=== PATIENT | female | born 1985 | race Caucasian/White ===

== ENCOUNTER 2019-12-28 18:12 | Emergency (ER) | payer BC ==
[~2019-12-28] VITALS: Ht 170.2 cm; Wt 204.0 kg
[~2019-12-28 18:12] MED LIST: ALPR-304 PO; CITA10SO6 PO; DIAZ5TAB PO; HYDR-4353 PO; METF-900 PO; OMEP-84 PO; ONDA4TAB6 PO; PROP10TA10 PO; RES15C PO; SUMA25TA35 PO
[2019-12-28 18:45] VITALS: BP 150/94
== END 2019-12-28 18:51 | disposition home or self-care (01) ==
LOC: ER 18:13
DX: R50.9 Fever, unspecified (principal); R51.9 Headache, unspecified; G43.909 Migraine, unspecified, not intractable, without status migrainosus; E11.9 Type 2 diabetes mellitus without complications; F41.9 Anxiety disorder, unspecified; M19.90 Unspecified osteoarthritis, unspecified site; Z20.828 Contact with and (suspected) exposure to other viral communicable diseases
CPT/HCPCS: 36415; 99282

== ENCOUNTER 2021-05-15 11:46 | Inpatient (IN) | payer BC ==
[~2021-05-15] VITALS: Ht 170.2 cm; Wt 203.0 kg
[2021-05-15 12:43] LABS: CLARITY,URINE SLIGHTLY CLOUDY (Clear); GLUCOSE, URINE >=1000 mg/dl (Neg); KETONES,URINE 40 mg/dl (Neg); LEUKOCYTE ESTERASE ,URINE TRACE (Neg); NITRITES, URINE NEGATIVE (Neg); OCCULT BLOOD,URINE LARGE (Neg); PROTEIN,URINE NEGATIVE (Neg); UROBILINOGEN,URINE 0.2 E.U/dL (0.2-1.0)
[2021-05-15 12:45] LABS: COLOR,URINE STRAW (Yellow); UA COLLECTION TYPE CLN CATCH MIDSTREAM
[2021-05-15 12:48] LABS: BASOPHILS # (AUTO) 0.1 X10'3 (0-0.2); BASOPHILS % (AUTO) 0.5 % (0-1); EOSINOPHILS # (AUTO) 0.4 X10'3 (0-0.9); EOSINOPHILS % (AUTO) 2.3 % (0-6); HEMATOCRIT 43.4 % (35.0-45.0); HEMOGLOBIN 14.3 g/dl (12.0-16.0); LYMPHOCYTES # (AUTO) 2.3 X10'3 (1.1-4.8); LYMPHOCYTES % (AUTO) 15.2 % (21-51); MEAN CORPUSCULAR HEMOGLOBIN 26.3 PG (27.0-31.0); MEAN CORPUSCULAR HGB CONC 32.9 g/dL (33.0-36.5); MEAN CORPUSCULAR VOLUME 79.8 FL (78-98); MEAN PLATELET VOLUME 8.3 FL (7.4-10.4); MONOCYTES # (AUTO) 1.3 X10'3 (0-0.9); MONOCYTES % (AUTO) 8.8 % (2-12); NEUTROPHILS % (AUTO) 73.2 % (42-75); PLATELET COUNT 345 X10'3 (140-440); RED BLOOD COUNT 5.44 X10'6 (4.20-5.60); RED CELL DISTRIBUTION WIDTH 15.1 % (11.5-14.5)
[2021-05-15] MEDS ORDERED: BUPIVAcaine/PF 7.5mg/ml (0.75%) 10ml vial IJ STA (12:51)
[2021-05-15] MEDS ORDERED: LIDOcaine 1% W/epiNEPHrine 1:200,000 10ml vial IJ ONE (12:55)
[2021-05-15 13:00] LABS: BACTERIA,URINE FEW /HPF (Neg); MUCUS STRANDS FEW /LPF (Neg); SQUAMOUS EPITHELIAL CELL,UR MANY /LPF (FEW); WBC,URINE 0-4 /HPF (0-4); YEAST FEW /HPF (NEGATIVE)
[2021-05-15] MEDS ORDERED: iohexol 300mg/ml 100ml inj. ONE (13:04)
[2021-05-15 13:05] LABS: ALANINE AMINOTRANSFERASE 34 U/L (12-78); ALBUMIN 3.6 G/DL (3.4-5.0); ALBUMIN/GLOBULIN RATIO 0.8 (1.1-1.5); ALKALINE PHOSPHATASE 95 IU/L (46-116); ANION GAP 15 (8-16); ASPARTATE AMINO TRANSFERASE 20 U/L (10-37); BILIRUBIN,TOTAL 0.9 MG/DL (0.1-1.0); BLOOD UREA NITROGEN 14 MG/DL (7-18); BUN/CREATININE RATIO 15.6 (6.6-38.0); CALCIUM 8.9 MG/DL (8.5-10.1); CHLORIDE 102 MMOL/L (99-107); GLUCOSE 356 MG/DL (70-104); MAGNESIUM 2.4 MG/DL (1.5-2.4); POTASSIUM 3.9 MMOL/L (3.5-5.1); SODIUM 135 MMOL/L (135-145); TOTAL CARBON DIOXIDE 18.1 MMOL/L (24-32); TOTAL PROTEIN 7.9 G/DL (6.4-8.2); eGFR 70 ML/MIN
[2021-05-15] MEDS ORDERED: morphine 10mg/ml inj. IV ONE (13:10)
[2021-05-15] MEDS ORDERED: morphine 4 MG/ML inj SYRINge IV ONE ×3 (13:10→15:00)
[2021-05-15] MEDS ORDERED: ampicillin/sulbac 3gm/NS 100ml 100 ML IV SCH (13:10)
[2021-05-15] MEDS ORDERED: normal saline 1000ml 1,000 ML IV ONE (13:15)
[2021-05-15] MEDS ORDERED: insulin regular, human 10 units/0.1 ml syringe SQ ONE (13:35)
[2021-05-15] MEDS ORDERED: fluconazole 150mg tablet PO ONE (16:45)
[2021-05-15] MEDS ORDERED: magnesium 2GM in 50ml NS 50 ML IV PRN (17:05)
[2021-05-15] MEDS ORDERED: HYDROcodone/acetaminophen 5mg/325mg tablet PO PRN (17:05)
[2021-05-15] MEDS ORDERED: magnesium hydroxide 30ml (MOM) UD suspension PO PRN (17:05)
[2021-05-15] MEDS ORDERED: dextrose 50%-water 50ml dispensing syringe IV PRN ×2 (17:05)
[2021-05-15] MEDS ORDERED: acetaminophen 325mg tablet PO PRN ×2 (17:05)
[2021-05-15] MEDS ORDERED: naloxone 0.4 mg/ml inj IV PRN (17:05)
[2021-05-15] MEDS ORDERED: DEXTROSE 15 GM of carb/4 tabs (each vial/BOTTLE has 4 tablets) PO PRN ×2 (17:05)
[2021-05-15] MEDS ORDERED: magnesium 4gm in 100ml NS 100 ML IV PRN (17:05)
[2021-05-15] MEDS ORDERED: glucagon, human recombinant 1mg kit SUBCUT PRN (17:05)
[2021-05-15] MEDS ORDERED: bisacodyl 10mg suppository rectal RC PRN (17:05)
[2021-05-15] MEDS ORDERED: acetaminophen 650mg rectal suppository RC PRN (17:05)
[2021-05-15] MEDS ORDERED: potassium CL 10mEq/100ml bag 100 ML IV PRN (17:05)
[2021-05-15] MEDS ORDERED: MESSAGE TO PHARMACY PO ONE (17:05)
[2021-05-15] MEDS ORDERED: potassium Cl 20 mEq SR tablet PO PRN ×2 (17:05)
[2021-05-15] MEDS ORDERED: magnesium Cl slow-release 64mg tablet PO PRN (17:05)
[2021-05-15] MEDS ORDERED: morphine 2 MG/ML inj. syringe IV PRN (17:05)
[2021-05-15] MEDS ORDERED: ondansetron/PF 4mg/2ml inj IV PRN (17:05)
[2021-05-15] MEDS ORDERED: mag hydrox/Alum hydrox/simeth 30ml oral suspension PO PRN (17:05)
[2021-05-15] MEDS ORDERED: EMPA10TA PO (17:11)
[2021-05-15] MEDS ORDERED: MULT-1085 PO (17:11)
[2021-05-15] MEDS ORDERED: SPIR25TA5 PO (17:11)
[2021-05-15] MEDS ORDERED: LEVO25TA82 PO (17:11)
[2021-05-15] MEDS ORDERED: DULO-31 PO (17:11)
[2021-05-15] MEDS ORDERED: FERR-119 PO (17:11)
[2021-05-15] MEDS ORDERED: GLIP10TA21 PO (17:11)
--- NOTE | 2021-05-15 17:39 | NUR ---
Report received from PETE Fernandez in ER
--- NOTE | 2021-05-15 18:07 | NUR ---
Problems reprioritized. Patient report given, questions answered & plan of care reviewed with PETE Soria.
[2021-05-15 18:11] LABS: HEMOGLOBIN A1C 11.8 % (4.5-6.2)
[2021-05-15 18:15] VITALS: BP 153/83
[2021-05-15] MEDS ORDERED: GLIP10TA11 PO (18:45)
--- NOTE | 2021-05-15 18:45 | NUR ---
Patient in room ED 11. I have received report from Corie FREEMAN and had the opportunity to ask questions and assume patient care. Addendum: 05/15/21 at 1845 by Estella Parker RN [facility] Addendum: 05/15/21 at 1846 by Estella Parker RN In room 349B
[2021-05-15] MEDS: insulin Lispro (HumaLOG) vial - multi-dose SQ SCH (19:23)
[2021-05-15] MEDS: piperacillin/tazo 3.375gm/50ml 50 ML IV SCH (19:26)
[2021-05-15] MEDS: normal saline 1000ml 1,000 ML IV SCH (19:26)
[2021-05-15] MEDS: K and/or MAG REPLACEMENT MC SCH (20:00)
[2021-05-15] MEDS: morphine 2 MG/ML inj. syringe IV PRN (20:33)
[2021-05-15] MEDS: docusate sod 100mg capsule PO SCH (20:44)
[2021-05-15] MEDS: heparin, porcine 5000 units/ml vial SQ SCH (20:44)
[2021-05-15] MEDS: insulin glargine (Lantus) pen - multi-dose SQ SCH (21:30)
[2021-05-15] MEDS: HYDROcodone/acetaminophen 10/325mg tab PO PRN (22:39)
[2021-05-16] VITALS: BP 137/79
--- NOTE | 2021-05-16 00:19 | NUR ---
I talked to the pharmacist about the dosing of Vancomycin and Zosyn on the patient's EMAR. We are to hold the midnight dose of Zosyn because her last dose is still finishing up due to no iv access and medicine being interrupted. Also the 1900 dose of Vancomycin was not given due to Zosyn running so we are to give that dose now and hold the 0300 dose of Vancomycin. Pharmacy will retime the Vancomycin in the am.
[2021-05-16] MEDS: vancomycin/NS 1 GM ADD-VANTAGE 250 ML IV SCH ×5 (00:24→23:38)
[2021-05-16] MEDS: morphine 2 MG/ML inj. syringe IV PRN ×5 (00:25→23:41)
[2021-05-16] MEDS: diphenhydrAMINE 25mg capsule PO PRN ×3 (02:26→21:18)
[2021-05-16] MEDS: normal saline 1000ml 1,000 ML IV SCH ×3 (03:05→19:53)
[2021-05-16] MEDS: HYDROcodone/acetaminophen 10/325mg tab PO PRN ×4 (05:36→21:20)
--- NOTE | 2021-05-16 06:24 | NUR ---
Problems reprioritized. Patient report given, questions answered & plan of care reviewed with Brittany FREEMAN.
[2021-05-16 07:03] LABS: BASOPHILS # (AUTO) 0.1 X10'3 (0-0.2); BASOPHILS % (AUTO) 0.5 % (0-1); EOSINOPHILS # (AUTO) 0.3 X10'3 (0-0.9); EOSINOPHILS % (AUTO) 2.1 % (0-6); HEMATOCRIT 40.9 % (35.0-45.0); HEMOGLOBIN 13.8 g/dl (12.0-16.0); LYMPHOCYTES # (AUTO) 2.4 X10'3 (1.1-4.8); LYMPHOCYTES % (AUTO) 15.1 % (21-51); MEAN CORPUSCULAR HEMOGLOBIN 27.3 PG (27.0-31.0); MEAN CORPUSCULAR HGB CONC 33.8 g/dL (33.0-36.5); MEAN CORPUSCULAR VOLUME 80.7 FL (78-98); MONOCYTES # (AUTO) 1.5 X10'3 (0-0.9); MONOCYTES % (AUTO) 9.4 % (2-12); NEUTROPHILS # (AUTO) 11.7 X10'3 (1.8-7.7); NEUTROPHILS % (AUTO) 72.9 % (42-75); PLATELET COUNT 341 X10'3 (140-440); RED BLOOD COUNT 5.07 X10'6 (4.20-5.60); RED CELL DISTRIBUTION WIDTH 15.2 % (11.5-14.5)
[2021-05-16 07:19] LABS: ALANINE AMINOTRANSFERASE 31 U/L (12-78); ALBUMIN 3.4 G/DL (3.4-5.0); ALBUMIN/GLOBULIN RATIO 0.8 (1.1-1.5); ALKALINE PHOSPHATASE 85 IU/L (46-116); ANION GAP 14 (8-16); ASPARTATE AMINO TRANSFERASE 17 U/L (10-37); BILIRUBIN,TOTAL 1.5 MG/DL (0.1-1.0); BLOOD UREA NITROGEN 8 MG/DL (7-18); BUN/CREATININE RATIO 11.1 (6.6-38.0); CALCIUM 8.2 MG/DL (8.5-10.1); CHLORIDE 102 MMOL/L (99-107); CHOLESTEROL 115 MG/DL (0-200); CREATININE 0.72 MG/DL (0.40-0.90); GLUCOSE 236 MG/DL (70-104); HDL CHOLESTEROL 29 MG/DL (35-60); LDL CHOLESTEROL 72 MG/DL (50-100); MAGNESIUM 2.1 MG/DL (1.5-2.4); PHOSPHORUS 3.4 MG/DL (2.3-4.5); POTASSIUM 3.8 MMOL/L (3.5-5.1); SODIUM 134 MMOL/L (135-145); TOTAL CARBON DIOXIDE 18.1 MMOL/L (24-32); TOTAL PROTEIN 7.7 G/DL (6.4-8.2); TRIGLYCERIDES 179 MG/DL (20-135); eGFR > 90 ML/MIN
[2021-05-16] MEDS: docusate sod 100mg capsule PO SCH ×2 (07:34→18:59)
[2021-05-16] MEDS: heparin, porcine 5000 units/ml vial SQ SCH ×2 (07:35→19:00)
[2021-05-16] MEDS: K and/or MAG REPLACEMENT MC SCH ×2 (07:47→19:05)
[2021-05-16 08:04] VITALS: BP 131/76
[2021-05-16] MEDS: insulin Lispro (HumaLOG) vial - multi-dose SQ SCH ×3 (08:26→18:58)
[2021-05-16] MEDS: piperacillin/tazo 3.375gm/50ml 50 ML IV SCH ×3 (09:47→17:03)
--- NOTE | 2021-05-16 11:28 | NUR ---
Diabetes consult: Noted pt w/ hx of DM, A1c 11.8. Pt declined verbal ed at this time but accepted written DM ed w/ RD contact info Addendum: 05/16/21 at [address] Amended: Links added.
[2021-05-16 12:08] VITALS: BP 135/76
[2021-05-16] MEDS ORDERED: fluconazole 150mg tablet PO ONE (14:30)
[2021-05-16] MEDS: nystatin 15 GM powder TP SCH ×2 (14:54→21:20)
--- NOTE | 2021-05-16 15:47 | NUR ---
REPORT TO WINDY FREEMAN.
--- NOTE | 2021-05-16 15:47 | NUR ---
Patient in room [facility] 349B. I have received report from PETE PIERCE and had the opportunity to ask questions and assume patient care.
--- NOTE | 2021-05-16 18:29 | NUR ---
Problems reprioritized. Patient report given, questions answered & plan of care reviewed with PETE WU.
[2021-05-16 20:00] VITALS: BP 139/72
[2021-05-16] MEDS: insulin glargine (Lantus) pen - multi-dose SQ SCH (21:13)
[2021-05-16] MEDS ORDERED: VANCOMYCIN LEVEL IV ONE (23:30)
[2021-05-17] VITALS: BP 119/66
[2021-05-17] MEDS: piperacillin/tazo 3.375gm/50ml 50 ML IV SCH ×4 (01:13→23:21)
[2021-05-17] MEDS: HYDROcodone/acetaminophen 10/325mg tab PO PRN ×4 (02:43→21:50)
[2021-05-17] MEDS: morphine 2 MG/ML inj. syringe IV PRN ×4 (04:50→23:25)
[2021-05-17] MEDS: normal saline 1000ml 1,000 ML IV SCH ×2 (04:52→19:00)
--- NOTE | 2021-05-17 06:16 | NUR ---
Problems reprioritized. Patient report given, questions answered & plan of care reviewed with Meenu FREEMAN.
[2021-05-17 06:41] LABS: BASOPHILS # (AUTO) 0.1 X10'3 (0-0.2); BASOPHILS % (AUTO) 0.5 % (0-1); EOSINOPHILS # (AUTO) 0.3 X10'3 (0-0.9); EOSINOPHILS % (AUTO) 2.5 % (0-6); HEMATOCRIT 37.6 % (35.0-45.0); HEMOGLOBIN 12.3 g/dl (12.0-16.0); LYMPHOCYTES # (AUTO) 1.5 X10'3 (1.1-4.8); MEAN CORPUSCULAR HEMOGLOBIN 26.3 PG (27.0-31.0); MEAN CORPUSCULAR HGB CONC 32.8 g/dL (33.0-36.5); MEAN CORPUSCULAR VOLUME 80.3 FL (78-98); MEAN PLATELET VOLUME 8.2 FL (7.4-10.4); MONOCYTES # (AUTO) 1.3 X10'3 (0-0.9); MONOCYTES % (AUTO) 11.6 % (2-12); NEUTROPHILS # (AUTO) 7.9 X10'3 (1.8-7.7); NEUTROPHILS % (AUTO) 71.4 % (42-75); PLATELET COUNT 267 X10'3 (140-440); RED BLOOD COUNT 4.68 X10'6 (4.20-5.60); RED CELL DISTRIBUTION WIDTH 15.3 % (11.5-14.5); WHITE BLOOD COUNT 11.1 X10'3 (4.5-11.0)
--- NOTE | 2021-05-17 06:47 | NUR ---
Patient in room [facility] 349B. I have received report from PETE WU and had the opportunity to ask questions and assume patient care.
[2021-05-17 07:20] LABS: ALANINE AMINOTRANSFERASE 27 U/L (12-78); ALBUMIN 2.8 G/DL (3.4-5.0); ALBUMIN/GLOBULIN RATIO 0.7 (1.1-1.5); ALKALINE PHOSPHATASE 78 IU/L (46-116); ANION GAP 11 (8-16); ASPARTATE AMINO TRANSFERASE 20 U/L (10-37); BILIRUBIN,TOTAL 1.2 MG/DL (0.1-1.0); BLOOD UREA NITROGEN 7 MG/DL (7-18); BUN/CREATININE RATIO 9.3 (6.6-38.0); CALCIUM 8.1 MG/DL (8.5-10.1); CHLORIDE 104 MMOL/L (99-107); CREATININE 0.75 MG/DL (0.40-0.90); GLUCOSE 247 MG/DL (70-104); MAGNESIUM 1.9 MG/DL (1.5-2.4); PHOSPHORUS 3.5 MG/DL (2.3-4.5); POTASSIUM 3.7 MMOL/L (3.5-5.1); SODIUM 134 MMOL/L (135-145); TOTAL CARBON DIOXIDE 19.2 MMOL/L (24-32); TOTAL PROTEIN 6.7 G/DL (6.4-8.2); VANCOMYCIN,RANDOM 9.4 UG/ML; eGFR 87 ML/MIN
[2021-05-17 07:28] VITALS: BP 132/76
[2021-05-17] MEDS: K and/or MAG REPLACEMENT MC SCH ×2 (08:00→19:00)
[2021-05-17] MEDS: ferrous sulfate 325mg tablet PO SCH (08:01)
[2021-05-17] MEDS: spironolactone 25 MG tablet PO SCH ×2 (08:03→18:57)
[2021-05-17] MEDS: duloxetine 30mg CAPSULE.DR PO SCH (08:03)
[2021-05-17] MEDS: diphenhydrAMINE 25mg capsule PO PRN ×2 (08:04→19:00)
[2021-05-17] MEDS: docusate sod 100mg capsule PO SCH ×2 (08:04→18:56)
[2021-05-17] MEDS: levoTHYROXINE 25mcg tablet PO SCH (08:04)
[2021-05-17] MEDS: multivitamins, therapeutics tablet PO SCH (08:04)
[2021-05-17] MEDS: heparin, porcine 5000 units/ml vial SQ SCH ×2 (08:05→18:56)
[2021-05-17] MEDS: nystatin 15 GM powder TP SCH ×2 (08:08→13:00)
[2021-05-17] MEDS: insulin Lispro (HumaLOG) vial - multi-dose SQ SCH ×3 (08:13→18:51)
[2021-05-17] MEDS: VANCOmycin 1250MG/NS 250ml Bag 250 ML IV SCH ×3 (09:18→23:15)
[2021-05-17] MEDS ORDERED: iohexol 300mg/ml 100ml inj. ONE (10:24)
[2021-05-17 12:36] VITALS: BP 126/81
--- NOTE | 2021-05-17 13:43 | NUR ---
PRESSURE ULCER EDUCATION: DEFINITION: A pressure ulcer is an area of skin that breaks down when you stay in one position too long. The constant pressure against the skin reduces the blood flow to that area and the affected tissue dies. CAUSES: "Being bedridden or in a wheelchair "Fragile skin "Having a chronic condition, such as diabetes or vascular disease "Inability to move certain parts of your body without assistance "Older age "Incontinence of urine or stool SYMPTOMS: "A reddened area that DOES NOT turn white when pressed on - this can be the beginning of a pressure ulcer "A blister, deep sore or a crater - these can be advanced pressure ulcers FIRST AID: "Relieve the pressure on this area "Keep the area clean and dry "Call your primary doctor if you see any of the above symptoms "DO NOT massage the area "DO NOT use a donut shaped or ring shaped pillow- these actually interfere with the blood flow and cause complications PREVENTION: "Check for pressure ulcers everyday "Change position at least every two hours to relieve pressure "Use items that help relieve pressure- pillows, sheepskin, foam padding, and powders. "Keep skin clean and dry "Eat healthy well balanced meals "Exercise daily IF YOU SEE ANY OF THESE SYMPTOMS WHILE IN THE HOSPITAL - TELL YOUR NURSE IMMEDIATELY. IF YOU SEE ANY OF THESE SYMPTOMS WHILE AT HOME OR HAVE ANY QUESTIONS OR CONCERNS ABOUT PRESSURE ULCERS - CALL YOUR PRIMARY DOCTOR IMMEDIATELY. Addendum: 05/17/21 at 1344 by Jessica Douglas RN Amended: Links added.
[2021-05-17 17:05] LABS: CLARITY,URINE CLEAR (Clear); COLOR,URINE YELLOW (Yellow); GLUCOSE, URINE >=1000 mg/dl (Neg); KETONES,URINE 40 mg/dl (Neg); LEUKOCYTE ESTERASE ,URINE NEGATIVE (Neg); NITRITES, URINE NEGATIVE (Neg); OCCULT BLOOD,URINE TRACE-INTACT (Neg); PROTEIN,URINE NEGATIVE (Neg); URINE HCG NEGATIVE (NEG); UROBILINOGEN,URINE 0.2 E.U/dL (0.2-1.0)
[2021-05-17 17:21] LABS: UA COLLECTION TYPE STRAIGHT CATH
[2021-05-17 17:23] LABS: WBC,URINE NONE SEEN /HPF (0-4)
[2021-05-17 17:24] LABS: BACTERIA,URINE NONE SEEN /HPF (Neg); RBC,URINE NONE SEEN /HPF (0-2); SQUAMOUS EPITHELIAL CELL,UR FEW /LPF (FEW)
--- NOTE | 2021-05-17 18:27 | NUR ---
OK TO USE PERSONAL CPAP AT NIGHT AND WITH NAPS PER
--- NOTE | 2021-05-17 18:27 | NUR ---
Problems reprioritized. Patient report given, questions answered & plan of care reviewed with PETE WU
--- NOTE | 2021-05-17 19:06 | NUR ---
Patient in room [facility] 349. I have received report from Meenu FREEMAN and had the opportunity to ask questions and assume patient care.
[2021-05-17 19:20] VITALS: BP 140/80
[2021-05-17] MEDS: insulin glargine (Lantus) pen - multi-dose SQ SCH (21:55)
[2021-05-17 23:30] VITALS: BP 121/60
[2021-05-18] MEDS: HYDROcodone/acetaminophen 10/325mg tab PO PRN ×5 (02:05→21:28)
[2021-05-18] MEDS: morphine 2 MG/ML inj. syringe IV PRN ×4 (04:58→19:24)
[2021-05-18] MEDS: normal saline 1000ml 1,000 ML IV SCH ×2 (04:58→15:43)
--- NOTE | 2021-05-18 06:35 | NUR ---
Problems reprioritized. Patient report given, questions answered & plan of care reviewed with Hope FREEMAN.
--- NOTE | 2021-05-18 06:37 | NUR ---
Patient in room [facility] 349. I have received report from Loyda FREEMAN and had the opportunity to ask questions and assume patient care.
[2021-05-18 07:00] VITALS: BP 125/72
[2021-05-18] MEDS ORDERED: VANCOMYCIN LEVEL IV ONE (07:30)
[2021-05-18] MEDS: K and/or MAG REPLACEMENT MC SCH ×2 (08:00→20:00)
[2021-05-18 08:06] LABS: BASOPHILS # (AUTO) 0.1 X10'3 (0-0.2); BASOPHILS % (AUTO) 0.5 % (0-1); EOSINOPHILS # (AUTO) 0.3 X10'3 (0-0.9); EOSINOPHILS % (AUTO) 3.1 % (0-6); HEMATOCRIT 36.2 % (35.0-45.0); HEMOGLOBIN 12.1 g/dl (12.0-16.0); LYMPHOCYTES # (AUTO) 1.8 X10'3 (1.1-4.8); LYMPHOCYTES % (AUTO) 18.4 % (21-51); MEAN CORPUSCULAR HEMOGLOBIN 26.7 PG (27.0-31.0); MEAN CORPUSCULAR HGB CONC 33.5 g/dL (33.0-36.5); MEAN CORPUSCULAR VOLUME 79.7 FL (78-98); MEAN PLATELET VOLUME 7.7 FL (7.4-10.4); MONOCYTES # (AUTO) 1.2 X10'3 (0-0.9); MONOCYTES % (AUTO) 11.7 % (2-12); NEUTROPHILS # (AUTO) 6.5 X10'3 (1.8-7.7); NEUTROPHILS % (AUTO) 66.3 % (42-75); PLATELET COUNT 266 X10'3 (140-440); RED BLOOD COUNT 4.55 X10'6 (4.20-5.60); RED CELL DISTRIBUTION WIDTH 15.1 % (11.5-14.5); WHITE BLOOD COUNT 9.9 X10'3 (4.5-11.0)
[2021-05-18 08:28] LABS: ALANINE AMINOTRANSFERASE 38 U/L (12-78); ALBUMIN 2.6 G/DL (3.4-5.0); ALBUMIN/GLOBULIN RATIO 0.7 (1.1-1.5); ALKALINE PHOSPHATASE 89 IU/L (46-116); ANION GAP 9 (8-16); ASPARTATE AMINO TRANSFERASE 35 U/L (10-37); BILIRUBIN,TOTAL 0.9 MG/DL (0.1-1.0); BLOOD UREA NITROGEN 6 MG/DL (7-18); CALCIUM 8.3 MG/DL (8.5-10.1); CHLORIDE 106 MMOL/L (99-107); CREATININE 0.67 MG/DL (0.40-0.90); GLUCOSE 232 MG/DL (70-104); MAGNESIUM 1.8 MG/DL (1.5-2.4); PHOSPHORUS 3.5 MG/DL (2.3-4.5); SODIUM 138 MMOL/L (135-145); TOTAL CARBON DIOXIDE 22.6 MMOL/L (24-32); TOTAL PROTEIN 6.6 G/DL (6.4-8.2); VANCOMYCIN,TROUGH 9.9 UG/ML (6.0-14.0); eGFR > 90 ML/MIN
[2021-05-18] MEDS: diphenhydrAMINE 25mg capsule PO PRN ×2 (08:37→15:44)
[2021-05-18] MEDS: VANCOmycin 1250MG/NS 250ml Bag 250 ML IV SCH (08:38)
[2021-05-18] MEDS: piperacillin/tazo 3.375gm/50ml 50 ML IV SCH ×2 (08:38→16:06)
[2021-05-18] MEDS: ferrous sulfate 325mg tablet PO SCH (08:38)
[2021-05-18] MEDS: levoTHYROXINE 25mcg tablet PO SCH (08:38)
[2021-05-18] MEDS: duloxetine 30mg CAPSULE.DR PO SCH (08:38)
[2021-05-18] MEDS: multivitamins, therapeutics tablet PO SCH (08:39)
[2021-05-18] MEDS: spironolactone 25 MG tablet PO SCH ×2 (08:39→19:24)
[2021-05-18] MEDS: docusate sod 100mg capsule PO SCH ×2 (08:40→19:24)
[2021-05-18] MEDS: heparin, porcine 5000 units/ml vial SQ SCH ×2 (08:41→19:25)
[2021-05-18] MEDS: insulin Lispro (HumaLOG) vial - multi-dose SQ SCH ×4 (08:47→21:26)
--- NOTE | 2021-05-18 10:06 | NUR ---
F/u: Per wound care note skin is intact. Noted pt with 100% PO intake on CHO controlled diet, d/w dietary to send double protein with meals for satiety. Will continue to follow. Addendum: 05/18/21 at [address] Amended: Links added.
[2021-05-18 12:00] VITALS: BP 133/74
--- NOTE | 2021-05-18 14:06 | NUR ---
Paged Dr. Stone Message: [facility] RN ext [phone] RE: Shakeel Kearns. Patient asking if she can have her Morphine IV given more often? She is getting Morphine 4mg IV Q4hrs PRN
--- NOTE | 2021-05-18 17:34 | NUR ---
Patient requested to postpone the milk of magnesia for constipation at this time. She states "I'll wait for tonight!"
[2021-05-18 19:52] VITALS: BP 173/79
[2021-05-18] MEDS: linezolid 600mg tablet PO SCH (20:23)
[2021-05-18] MEDS: insulin glargine (Lantus) pen - multi-dose SQ SCH (21:24)
[2021-05-19] VITALS: BP 128/59
[2021-05-19] MEDS: piperacillin/tazo 3.375gm/50ml 50 ML IV SCH ×3 (00:06→16:09)
[2021-05-19] MEDS: morphine 2 MG/ML inj. syringe IV PRN ×5 (00:12→19:47)
[2021-05-19] MEDS: normal saline 1000ml 1,000 ML IV SCH ×3 (00:55→19:47)
[2021-05-19 06:06] LABS: BASOPHILS % (AUTO) 0.4 % (0-1); EOSINOPHILS # (AUTO) 0.3 X10'3 (0-0.9); EOSINOPHILS % (AUTO) 3.4 % (0-6); HEMATOCRIT 35.3 % (35.0-45.0); HEMOGLOBIN 11.6 g/dl (12.0-16.0); LYMPHOCYTES # (AUTO) 1.9 X10'3 (1.1-4.8); LYMPHOCYTES % (AUTO) 21.1 % (21-51); MEAN CORPUSCULAR HEMOGLOBIN 26.3 PG (27.0-31.0); MEAN CORPUSCULAR HGB CONC 32.8 g/dL (33.0-36.5); MEAN PLATELET VOLUME 7.7 FL (7.4-10.4); MONOCYTES % (AUTO) 11.5 % (2-12); NEUTROPHILS # (AUTO) 5.8 X10'3 (1.8-7.7); NEUTROPHILS % (AUTO) 63.6 % (42-75); PLATELET COUNT 274 X10'3 (140-440); RED BLOOD COUNT 4.41 X10'6 (4.20-5.60); RED CELL DISTRIBUTION WIDTH 15.3 % (11.5-14.5); WHITE BLOOD COUNT 9.1 X10'3 (4.5-11.0)
--- NOTE | 2021-05-19 06:36 | NUR ---
Problems reprioritized. Patient report given, questions answered & plan of care reviewed with Chema FREEMAN.
[2021-05-19 06:40] LABS: ALANINE AMINOTRANSFERASE 37 U/L (12-78); ALBUMIN 2.4 G/DL (3.4-5.0); ALBUMIN/GLOBULIN RATIO 0.6 (1.1-1.5); ALKALINE PHOSPHATASE 85 IU/L (46-116); ANION GAP 12 (8-16); ASPARTATE AMINO TRANSFERASE 25 U/L (10-37); BILIRUBIN,TOTAL 0.7 MG/DL (0.1-1.0); BLOOD UREA NITROGEN 7 MG/DL (7-18); BUN/CREATININE RATIO 11.3 (6.6-38.0); CALCIUM 7.8 MG/DL (8.5-10.1); CHLORIDE 102 MMOL/L (99-107); CREATININE 0.62 MG/DL (0.40-0.90); GLUCOSE 210 MG/DL (70-104); MAGNESIUM 1.5 MG/DL (1.5-2.4); POTASSIUM 3.6 MMOL/L (3.5-5.1); SODIUM 137 MMOL/L (135-145); TOTAL CARBON DIOXIDE 23.1 MMOL/L (24-32); TOTAL PROTEIN 6.4 G/DL (6.4-8.2); eGFR > 90 ML/MIN
--- NOTE | 2021-05-19 06:43 | NUR ---
Patient in room [facility] 349. I have received report from JAZMIN FREEMAN and had the opportunity to ask questions and assume patient care.
--- NOTE | 2021-05-19 06:43 | NUR ---
PT AWAKE IN BED, NO REPORTS OF NEEDS. CALL LIGHT IN REACH. REQUESTED I CLOSE DOOR WHEN I LEFT
[2021-05-19 07:30] VITALS: BP 108/67
[2021-05-19] MEDS: ferrous sulfate 325mg tablet PO SCH (07:34)
[2021-05-19] MEDS: levoTHYROXINE 25mcg tablet PO SCH (07:35)
[2021-05-19] MEDS: docusate sod 100mg capsule PO SCH ×2 (07:35→19:46)
[2021-05-19] MEDS: HYDROcodone/acetaminophen 10/325mg tab PO PRN ×3 (07:35→16:07)
[2021-05-19] MEDS: duloxetine 30mg CAPSULE.DR PO SCH (07:35)
[2021-05-19] MEDS: spironolactone 25 MG tablet PO SCH ×2 (07:35→19:53)
[2021-05-19] MEDS: multivitamins, therapeutics tablet PO SCH (07:35)
[2021-05-19] MEDS: linezolid 600mg tablet PO SCH ×2 (07:36→19:46)
[2021-05-19] MEDS: K and/or MAG REPLACEMENT MC SCH ×2 (07:38→19:47)
[2021-05-19] MEDS: heparin, porcine 5000 units/ml vial SQ SCH ×2 (07:38→19:46)
[2021-05-19] MEDS ORDERED: VANCOMYCIN LEVEL IV ONE (08:30)
[2021-05-19] MEDS: insulin Lispro (HumaLOG) vial - multi-dose SQ SCH ×4 (10:27→21:13)
--- NOTE | 2021-05-19 11:42 | NUR ---
Noted pt started on Zyvox. Pt seen at bedside provided with written and verbal low tyramine nutrition therapy education. All questions were answered at this time, RD contact information provided and pt encouraged to reach out if needed. Pt admit for cellulitis and phlegmon in the perianal region. Pt states appetite is "okay" though documented with mostly 100% PO intake on CHO controlled diet and is agreeable to continue double protein TID. Additional food preferences were obtained and d/w dietary, see below. 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 Pt denies difficulty chewing/swallowing or constipation/diarrhea. LBM 05/18 with routine and PRN bowel care available. Will continue to follow. Recommendations: 1) Continue CHO controlled diet 2) [place] food preferences: double eggs WB, double meat BIDLD, extra pepper TIDWM, light ranch only; no: fish, cinnamon, or green beans 3) Continue routine MVI 4) Routine bowel care 5) Weekly scaled weights Addendum: 05/19/21 at [address] Amended: Links added.
--- NOTE | 2021-05-19 12:57 | NUR ---
PRESSURE ULCER EDUCATION: DEFINITION: A pressure ulcer is an area of skin that breaks down when you stay in one position too long. The constant pressure against the skin reduces the blood flow to that area and the affected tissue dies. CAUSES: "Being bedridden or in a wheelchair "Fragile skin "Having a chronic condition, such as diabetes or vascular disease "Inability to move certain parts of your body without assistance "Older age "Incontinence of urine or stool SYMPTOMS: "A reddened area that DOES NOT turn white when pressed on - this can be the beginning of a pressure ulcer "A blister, deep sore or a crater - these can be advanced pressure ulcers FIRST AID: "Relieve the pressure on this area "Keep the area clean and dry "Call your primary doctor if you see any of the above symptoms "DO NOT massage the area "DO NOT use a donut shaped or ring shaped pillow- these actually interfere with the blood flow and cause complications PREVENTION: "Check for pressure ulcers everyday "Change position at least every two hours to relieve pressure "Use items that help relieve pressure- pillows, sheepskin, foam padding, and powders. "Keep skin clean and dry "Eat healthy well balanced meals "Exercise daily IF YOU SEE ANY OF THESE SYMPTOMS WHILE IN THE HOSPITAL - TELL YOUR NURSE IMMEDIATELY. IF YOU SEE ANY OF THESE SYMPTOMS WHILE AT HOME OR HAVE ANY QUESTIONS OR CONCERNS ABOUT PRESSURE ULCERS - CALL YOUR PRIMARY DOCTOR IMMEDIATELY. Addendum: 05/19/21 at 1258 by Jessica Douglas LVN Amended: Links added.
[2021-05-19 18:00] VITALS: BP 159/67
[2021-05-19] MEDS: diphenhydrAMINE 25mg capsule PO PRN (21:02)
[2021-05-19] MEDS: insulin glargine (Lantus) pen - multi-dose SQ SCH (21:12)
--- NOTE | 2021-05-19 23:51 | NUR ---
Problems reprioritized. Patient report given, questions answered & plan of care reviewed with Doreen Logan RN.
[2021-05-20] VITALS: BP 118/52
--- NOTE | 2021-05-20 | NUR ---
Patient in room [facility] 349. I have received report from MARIA ESTHER FREEMAN and had the opportunity to ask questions and assume patient care.
[2021-05-20] MEDS: piperacillin/tazo 3.375gm/50ml 50 ML IV SCH ×3 (00:27→17:27)
[2021-05-20] MEDS: HYDROcodone/acetaminophen 10/325mg tab PO PRN ×5 (00:33→22:34)
[2021-05-20] MEDS: morphine 2 MG/ML inj. syringe IV PRN (04:52)
[2021-05-20 06:00] LABS: BASOPHILS % (AUTO) 0.5 % (0-1); EOSINOPHILS # (AUTO) 0.3 X10'3 (0-0.9); EOSINOPHILS % (AUTO) 4.2 % (0-6); HEMATOCRIT 35.4 % (35.0-45.0); HEMOGLOBIN 11.6 g/dl (12.0-16.0); LYMPHOCYTES # (AUTO) 1.9 X10'3 (1.1-4.8); LYMPHOCYTES % (AUTO) 23.6 % (21-51); MEAN CORPUSCULAR HEMOGLOBIN 26.6 PG (27.0-31.0); MEAN CORPUSCULAR HGB CONC 32.8 g/dL (33.0-36.5); MEAN CORPUSCULAR VOLUME 80.9 FL (78-98); MEAN PLATELET VOLUME 7.6 FL (7.4-10.4); MONOCYTES % (AUTO) 11.9 % (2-12); NEUTROPHILS # (AUTO) 4.8 X10'3 (1.8-7.7); NEUTROPHILS % (AUTO) 59.8 % (42-75); PLATELET COUNT 280 X10'3 (140-440); RED BLOOD COUNT 4.37 X10'6 (4.20-5.60); RED CELL DISTRIBUTION WIDTH 14.7 % (11.5-14.5)
--- NOTE | 2021-05-20 06:08 | NUR ---
Problems reprioritized. Patient report given, questions answered & plan of care reviewed with MARIA ESTHER FREEMAN.
--- NOTE | 2021-05-20 06:25 | NUR ---
Patient in room [facility] 349. I have received report from CAMELIA DENISE RN and had the opportunity to ask questions and assume patient care.
[2021-05-20 06:44] LABS: ALANINE AMINOTRANSFERASE 38 U/L (12-78); ALBUMIN 2.3 G/DL (3.4-5.0); ALBUMIN/GLOBULIN RATIO 0.6 (1.1-1.5); ALKALINE PHOSPHATASE 84 IU/L (46-116); ANION GAP 11 (8-16); ASPARTATE AMINO TRANSFERASE 26 U/L (10-37); BILIRUBIN,TOTAL 0.5 MG/DL (0.1-1.0); BLOOD UREA NITROGEN 7 MG/DL (7-18); BUN/CREATININE RATIO 11.7 (6.6-38.0); CALCIUM 7.9 MG/DL (8.5-10.1); CHLORIDE 103 MMOL/L (99-107); GLUCOSE 182 MG/DL (70-104); MAGNESIUM 1.8 MG/DL (1.5-2.4); PHOSPHORUS 4.5 MG/DL (2.3-4.5); POTASSIUM 3.7 MMOL/L (3.5-5.1); SODIUM 138 MMOL/L (135-145); TOTAL CARBON DIOXIDE 23.6 MMOL/L (24-32); TOTAL PROTEIN 6.3 G/DL (6.4-8.2); eGFR > 90 ML/MIN
[2021-05-20] MEDS: spironolactone 25 MG tablet PO SCH ×2 (07:14→20:10)
[2021-05-20] MEDS: docusate sod 100mg capsule PO SCH ×2 (07:14→20:09)
[2021-05-20] MEDS: levoTHYROXINE 25mcg tablet PO SCH (07:14)
[2021-05-20] MEDS: duloxetine 30mg CAPSULE.DR PO SCH (07:14)
[2021-05-20] MEDS: ferrous sulfate 325mg tablet PO SCH (07:14)
[2021-05-20] MEDS: linezolid 600mg tablet PO SCH ×2 (07:14→20:10)
[2021-05-20] MEDS: multivitamins, therapeutics tablet PO SCH (07:14)
[2021-05-20] MEDS: normal saline 1000ml 1,000 ML IV SCH ×3 (07:15→20:13)
[2021-05-20] MEDS: K and/or MAG REPLACEMENT MC SCH ×2 (07:16→20:00)
[2021-05-20] MEDS: heparin, porcine 5000 units/ml vial SQ SCH ×2 (07:16→20:10)
[2021-05-20 08:00] VITALS: BP 129/75
[2021-05-20] MEDS: insulin Lispro (HumaLOG) vial - multi-dose SQ SCH ×3 (09:32→18:49)
--- NOTE | 2021-05-20 14:21 | NUR ---
Arrived in room for assessment of NPWT dressing. Removed kerlix and dressing is intact. There is small serosang drainage noted on canister. NPWT @ 125mmhg low continuous suction. Will remove tomorrow for dressing change. Addendum: 05/20/21 at 1423 by Rebecca De Leon RN Amended: Links added.
--- NOTE | 2021-05-20 14:33 | NUR ---
attempted to admin humalog per protocol, found current vial did not have enough. Called pharmacy to notify need of new vial. "Was told it would be right up." Was sent to lunch, notified armored car driver of need to admin, returned from lunch armored car driver stated she phoned pharmacy who stated it was in route. I am unable to admin lunch coverage insulin until pharmacy delivers
--- NOTE | 2021-05-20 17:10 | NUR ---
PAGER ID: [phone] MESSAGE: [phone] Shakeel Kearns, can you call me re pain medicine please thank you, MARIA ESTHER FREEMAN
--- NOTE | 2021-05-20 18:16 | NUR ---
Problems reprioritized. Patient report given, questions answered & plan of care reviewed with CAMELIA DENISE RN.
--- NOTE | 2021-05-20 18:30 | NUR ---
Patient in room [facility] 349. I have received report from MARIA ESTHER FREEMAN and had the opportunity to ask questions and assume patient care.
[2021-05-20 20:00] VITALS: BP 128/66
[2021-05-20] MEDS: diphenhydrAMINE 25mg capsule PO PRN (20:09)
[2021-05-20] MEDS: insulin glargine (Lantus) pen - multi-dose SQ SCH (21:30)
[2021-05-21] VITALS: BP 117/65
[2021-05-21] MEDS: piperacillin/tazo 3.375gm/50ml 50 ML IV SCH ×3 (00:05→16:00)
[2021-05-21] MEDS: HYDROcodone/acetaminophen 10/325mg tab PO PRN ×4 (03:50→16:08)
--- NOTE | 2021-05-21 06:30 | NUR ---
Problems reprioritized. Patient report given, questions answered & plan of care reviewed with VIVIAN FREEMAN.
--- NOTE | 2021-05-21 06:52 | NUR ---
Patient in room [facility] 349. I have received report from PETE Hawkins and had the opportunity to ask questions and assume patient care.
[2021-05-21 07:00] VITALS: BP 127/77
[2021-05-21] MEDS: ferrous sulfate 325mg tablet PO SCH (07:45)
[2021-05-21] MEDS: spironolactone 25 MG tablet PO SCH (07:45)
[2021-05-21] MEDS: docusate sod 100mg capsule PO SCH (07:45)
[2021-05-21] MEDS: heparin, porcine 5000 units/ml vial SQ SCH (07:45)
[2021-05-21] MEDS: levoTHYROXINE 25mcg tablet PO SCH (07:45)
[2021-05-21] MEDS: duloxetine 30mg CAPSULE.DR PO SCH (07:45)
[2021-05-21] MEDS: linezolid 600mg tablet PO SCH (07:45)
[2021-05-21] MEDS: multivitamins, therapeutics tablet PO SCH (07:45)
[2021-05-21] MEDS: insulin Lispro (HumaLOG) vial - multi-dose SQ SCH ×2 (08:50→13:49)
[2021-05-21 11:00] VITALS: BP 132/74
[2021-05-21] MEDS: normal saline 1000ml 1,000 ML IV SCH (13:05)
[2021-05-21] MEDS ORDERED: METF-900 PO (13:14)
[2021-05-21] MEDS ORDERED: METR-159 PO (13:15)
[2021-05-21] MEDS ORDERED: CIPR-259 PO (13:15)
[2021-05-21] MEDS ORDERED: LINE600T14 PO (13:16)
[2021-05-21] MEDS ORDERED: HYDR-3965 PO (13:19)
--- NOTE | 2021-05-21 16:25 | NUR ---
Pt discharged to home, with all belongings, in private vehicle, accompanied by family. Discharge instructions and medications reviewed. New prescriptions sent to [facility] in [place]. Pt instructed to follow up with Dr Lama and PCP in 1 week, office number provided. IV DC'd, cannula intact. Pt escorted to front lobby via wheelchair by PCT.
== END 2021-05-21 16:25 | disposition home or self-care (01) | DRG 394 ==
LOC: ER 11:47 → ED HOLD 17:06 → EDBEDREQ 17:17 → SUR 3N 19:09
PROVIDERS: ADMIT Family Medicine; ATTEND Family Medicine
PROC: BW211ZZ Computerized Tomography (CT Scan) of Abdomen and Pelvis using Low Osmolar Contrast (ICD-10-PCS; principal; 2021-05-15)
PROC: 5A09357 Assistance with Respiratory Ventilation, Less than 24 Consecutive Hours, Continuous Positive Airway Pressure (ICD-10-PCS; 2021-05-15)
DX: K61.0 Anal abscess (principal); L03.315 Cellulitis of perineum; L03.317 Cellulitis of buttock; E66.2 Morbid (severe) obesity with alveolar hypoventilation; Z68.45 Body mass index [BMI] 70 or greater, adult; B37.2 Candidiasis of skin and nail; E11.65 Type 2 diabetes mellitus with hyperglycemia; G43.909 Migraine, unspecified, not intractable, without status migrainosus; M19.90 Unspecified osteoarthritis, unspecified site; K21.9 Gastro-esophageal reflux disease without esophagitis; Z20.822 Contact with and (suspected) exposure to COVID-19; K57.90 Diverticulosis of intestine, part unspecified, without perforation or abscess without bleeding; E03.9 Hypothyroidism, unspecified; F41.0 Panic disorder [episodic paroxysmal anxiety]; Z87.440 Personal history of urinary (tract) infections; Z76.5 Malingerer [conscious simulation]; Z87.442 Personal history of urinary calculi; Z88.8 Allergy status to other drugs, medicaments and biological substances
CPT/HCPCS: 36415; 72193; 80053; 80061; 80202; 81001; 81002; 81025; 82009; 82948; 83036; 83605; 83735; 84100; 84145; 84439; 84443; 85025; 86140; 87040; 87081; 87635; 94660; 94760; 96365; 96372; 96375; 99285; G0378; J0295; J1644; J1815; J2270; J2274; J2543; J3370; J7030; Q0163; Q9967

== ENCOUNTER 2021-05-22 11:32 | Inpatient (IN) | payer BC ==
[2021-05-22] VITALS (18 sets, daily range): BP systolic 106–159; BP diastolic 69–97
[~2021-05-22] VITALS: Ht 170.2 cm; Wt 203.0 kg
[~2021-05-22 11:32] MED LIST changes: -ALPR-304 PO; +CIPR-259 PO; -CITA10SO6 PO; -DIAZ5TAB PO; +DULO-31 PO; +EMPA10TA PO; +FERR-119 PO; +GLIP10TA11 PO; +HYDR-3965 PO; -HYDR-4353 PO; +LEVO25TA82 PO; +LINE600T14 PO; +METR-159 PO; +MULT-1085 PO; -OMEP-84 PO; -ONDA4TAB6 PO; -PROP10TA10 PO; -RES15C PO; +SPIR25TA5 PO; -SUMA25TA35 PO
[2021-05-22] MEDS ORDERED: morphine 4 MG/ML inj SYRINge IV ONE (12:35)
[2021-05-22] MEDS ORDERED: normal saline 1000ml 1,000 ML IV ONE (12:35)
[2021-05-22] MEDS ORDERED: iohexol 300mg/ml 100ml inj. ONE (12:55)
[2021-05-22 12:59] LABS: BASOPHILS # (AUTO) 0.1 X10'3 (0-0.2); BASOPHILS % (AUTO) 0.7 % (0-1); EOSINOPHILS # (AUTO) 0.3 X10'3 (0-0.9); EOSINOPHILS % (AUTO) 3.7 % (0-6); HEMATOCRIT 37.4 % (35.0-45.0); HEMOGLOBIN 12.2 g/dl (12.0-16.0); LYMPHOCYTES # (AUTO) 1.9 X10'3 (1.1-4.8); LYMPHOCYTES % (AUTO) 21.8 % (21-51); MEAN CORPUSCULAR HEMOGLOBIN 26.3 PG (27.0-31.0); MEAN CORPUSCULAR HGB CONC 32.6 g/dL (33.0-36.5); MEAN CORPUSCULAR VOLUME 80.8 FL (78-98); MEAN PLATELET VOLUME 7.2 FL (7.4-10.4); MONOCYTES # (AUTO) 0.9 X10'3 (0-0.9); MONOCYTES % (AUTO) 10.2 % (2-12); NEUTROPHILS # (AUTO) 5.5 X10'3 (1.8-7.7); NEUTROPHILS % (AUTO) 63.6 % (42-75); PLATELET COUNT 329 X10'3 (140-440); RED BLOOD COUNT 4.62 X10'6 (4.20-5.60); RED CELL DISTRIBUTION WIDTH 15.3 % (11.5-14.5); WHITE BLOOD COUNT 8.7 X10'3 (4.5-11.0)
[2021-05-22 13:10] LABS: ALANINE AMINOTRANSFERASE 48 U/L (12-78); ALBUMIN 2.8 G/DL (3.4-5.0); ALBUMIN/GLOBULIN RATIO 0.7 (1.1-1.5); ALKALINE PHOSPHATASE 85 IU/L (46-116); ANION GAP 7 (8-16); ASPARTATE AMINO TRANSFERASE 34 U/L (10-37); BILIRUBIN,TOTAL 0.5 MG/DL (0.1-1.0); BLOOD UREA NITROGEN 9 MG/DL (7-18); BUN/CREATININE RATIO 11.1 (6.6-38.0); CALCIUM 8.6 MG/DL (8.5-10.1); CHLORIDE 105 MMOL/L (99-107); CREATININE 0.81 MG/DL (0.40-0.90); GLUCOSE 233 MG/DL (70-104); POTASSIUM 3.7 MMOL/L (3.5-5.1); SODIUM 138 MMOL/L (135-145); eGFR 80 ML/MIN
[2021-05-22] MEDS ORDERED: MESSAGE TO NURSING PO ONE (13:40)
[2021-05-22] MEDS ORDERED: LIDOcaine 1% 30ml preserv. free vial ONE (14:20)
[2021-05-22] MEDS ORDERED: BUPIVAcaine 0.5% inj/PF 30 ML ONE (14:20)
[2021-05-22] MEDS ORDERED: magnesium 2GM in 50ml NS 50 ML IV PRN (14:35)
[2021-05-22] MEDS ORDERED: magnesium hydroxide 30ml (MOM) UD suspension PO PRN (14:35)
[2021-05-22] MEDS ORDERED: magnesium Cl slow-release 64mg tablet PO PRN (14:35)
[2021-05-22] MEDS ORDERED: magnesium 4gm in 100ml NS 100 ML IV PRN (14:35)
[2021-05-22] MEDS ORDERED: ondansetron/PF 4mg/2ml inj IV PRN ×2 (14:35→15:40)
[2021-05-22] MEDS ORDERED: morphine 2 MG/ML inj. syringe IV PRN ×3 (14:35→15:40)
[2021-05-22] MEDS ORDERED: HYDROmorphone/PF 0.2 MG/ML SYRINGE IV PRN ×3 (14:35→15:40)
[2021-05-22] MEDS ORDERED: acetaminophen 325mg tablet PO PRN (14:35)
[2021-05-22] MEDS ORDERED: potassium CL 10mEq/100ml bag 100 ML IV PRN (14:35)
[2021-05-22] MEDS ORDERED: potassium Cl 20 mEq SR tablet PO PRN ×2 (14:35)
[2021-05-22] MEDS ORDERED: FENTANYL CITRATE/PF 50 MCG/1 ML VIAL ONE (14:40)
[2021-05-22] MEDS ORDERED: midazolam 1 mg/ML 2ml injection ONE (14:43)
[2021-05-22] MEDS ORDERED: glucagon, human recombinant 1mg kit SUBCUT PRN (14:45)
[2021-05-22] MEDS ORDERED: MESSAGE TO PHARMACY PO ONE (14:45)
[2021-05-22] MEDS ORDERED: dextrose 50%-water 50ml dispensing syringe IV PRN ×2 (14:45)
[2021-05-22] MEDS ORDERED: DEXTROSE 15 GM of carb/4 tabs (each vial/BOTTLE has 4 tablets) PO PRN ×2 (14:45)
[2021-05-22] MEDS ORDERED: sevoflurane 250ml liquid IH ONE (14:58)
[2021-05-22] MEDS ORDERED: dexamethasone sod phosphate 10mg/ml inj ONE (14:58)
--- NOTE | 2021-05-22 15:33 | NUR ---
Received from OR via [facility] , accompanied by Anesthesiologist DR GOMEZ and report given by Anesthesiologist. ALERT, VSS, C/O PERINEUM PAIN- MDEICATED IV. IV RT AC #20 PATENT WITH LR @100MLS/HR. 4X4 DSG TO PERINEUM WITH SMALL AMOUNT OF BLOOD PRESENT. SCD'S BILAT. CSM'S INTACT. Addendum: 05/22/21 at 1618 by Alexandra Cordoba RN Amended: Links added.
[2021-05-22] MEDS ORDERED: morphine 4 MG/ML inj SYRINge ONE (15:36)
[2021-05-22] MEDS ORDERED: naloxone 0.4 mg/ml inj IV PRN (15:40)
[2021-05-22] MEDS ORDERED: morphine 4 MG/ML inj SYRINge IV PRN (15:40)
[2021-05-22] MEDS ORDERED: ringers solution, lacted 1,000 ML IV SCH (15:40)
[2021-05-22] MEDS ORDERED: acetaminophen 1,000mg/100ml IV 100 ML IV ONE (15:40)
[2021-05-22] MEDS: HYDROmorphone inj. 0.5 MG/0.5 ML DISP.SYRIN IV PRN ×2 (15:44→20:01)
[2021-05-22] MEDS ORDERED: propofol inj 20 ML IV ONE (15:50)
[2021-05-22] MEDS ORDERED: succinylcholine 20mg/ml inj IV ONE (15:50)
[2021-05-22] MEDS ORDERED: dexamethasone sod phosphate 4mg/ml inj. ONE (15:50)
[2021-05-22] MEDS ORDERED: LIDOcaine 2% (20mg/ml) 5ml vial ONE (15:50)
[2021-05-22] MEDS ORDERED: insulin regular, human 10 units/0.1 ml syringe IV ONE (15:50)
[2021-05-22] MEDS ORDERED: ondansetron/PF 4mg/2ml inj ONE (15:50)
[2021-05-22] MEDS ORDERED: BUPIVAcaine 0.5% inj/PF 30 ml vial IJ ONE (15:52)
--- NOTE | 2021-05-22 16:43 | NUR ---
VSS. PT STATES ADEQUATE PAIN RELIEF, ASKS FOR HER PHONE TO ANSWER TEXTS. PERIANAL DSG WITH NO NEW DRAINAGE PRESENT. [facility] WNL. IV PATENT #20 RT AC. REPORT GIVEN TO RADHA FREEMAN WITH ALL QUESTIONS ANSWERED. TRANSPORTED WITH PARENTS PRESENT VIA [employer] TO [phone] WITH ALL PERSONAL BELONGINGS. Addendum: 05/22/21 at 1649 by Alexandra Cordoba RN Amended: Links added.
[2021-05-22] MEDS: normal saline 1000ml 1,000 ML IV SCH (18:19)
--- NOTE | 2021-05-22 18:58 | NUR ---
pt is admitted from recovery at about 1720. awake, alert and oriented x4. denies pain, nausea/vomiting/dizziness. minimal bleeding notd to 4x4 gauze at surgical site. no skin issues. vitals stable, blood glucose 213- meal tray not yet available. will endorse to oncoming RN for insulin coverage. per pharmacy, IV ATB will be sent to unit. pt stable resting in bed, family at bedside
[2021-05-22] MEDS: insulin Lispro (HumaLOG) vial - multi-dose SQ SCH ×2 (19:57→22:41)
[2021-05-22] MEDS: K and/or MAG REPLACEMENT MC SCH (20:00)
[2021-05-22] MEDS: piperacillin/tazo 3.375gm/50ml 50 ML IV SCH (20:13)
[2021-05-22] MEDS: spironolactone 25 MG tablet PO SCH (20:22)
[2021-05-22] MEDS: linezolid 600mg tablet PO SCH (20:22)
[2021-05-22] MEDS: heparin, porcine 5000 units/ml vial SQ SCH (20:23)
[2021-05-22] MEDS: insulin glargine (Lantus) pen - multi-dose SQ SCH (22:42)
[2021-05-23] MEDS: HYDROmorphone inj. 0.5 MG/0.5 ML DISP.SYRIN IV PRN ×5 (01:54→19:44)
--- NOTE | 2021-05-23 01:58 | NUR ---
2400 zosyn not given as 1600 dose was not delivered or given until 1999. spoke with pharmacist and advised me to give the dose at 1999, skip the 2400 dose and resume with scheduled AM dose
--- NOTE | 2021-05-23 05:45 | NUR ---
MEDICATED FOR PAIN X2 THIS SHIFT, MINIMAL AMT OF DRNG NOTED FROM [facility]. PATIENT'S BLOOD SUGARS HIGH LAST NIGHT AND NOTED IN HISTORY SHE IS INSULIN RESISTANT. WILL PASS THIS ON TO EARLY SHIFT AND WE WILL CLOSELY MONITOR HER SUGARS AND REQUEST CHANGES NEEDED FROM MD. REPORT TO EARLY SHIFT RN
[2021-05-23 06:00] VITALS: BP 113/52
[2021-05-23 07:13] LABS: BASOPHILS % (AUTO) 0.1 % (0-1); EOSINOPHILS % (AUTO) 0.1 % (0-6); HEMATOCRIT 36.2 % (35.0-45.0); LYMPHOCYTES # (AUTO) 1.4 X10'3 (1.1-4.8); LYMPHOCYTES % (AUTO) 11.1 % (21-51); MEAN CORPUSCULAR HEMOGLOBIN 27.3 PG (27.0-31.0); MEAN CORPUSCULAR HGB CONC 33.3 g/dL (33.0-36.5); MEAN PLATELET VOLUME 7.3 FL (7.4-10.4); MONOCYTES # (AUTO) 0.8 X10'3 (0-0.9); MONOCYTES % (AUTO) 5.9 % (2-12); NEUTROPHILS # (AUTO) 10.7 X10'3 (1.8-7.7); NEUTROPHILS % (AUTO) 82.8 % (42-75); PLATELET COUNT 342 X10'3 (140-440); RED BLOOD COUNT 4.42 X10'6 (4.20-5.60); RED CELL DISTRIBUTION WIDTH 14.9 % (11.5-14.5); WHITE BLOOD COUNT 12.9 X10'3 (4.5-11.0)
[2021-05-23 07:20] LABS: ALANINE AMINOTRANSFERASE 48 U/L (12-78); ALBUMIN 2.9 G/DL (3.4-5.0); ALBUMIN/GLOBULIN RATIO 0.7 (1.1-1.5); ALKALINE PHOSPHATASE 80 IU/L (46-116); ANION GAP 10 (8-16); ASPARTATE AMINO TRANSFERASE 28 U/L (10-37); BILIRUBIN,TOTAL 0.7 MG/DL (0.1-1.0); BLOOD UREA NITROGEN 7 MG/DL (7-18); BUN/CREATININE RATIO 9.3 (6.6-38.0); CALCIUM 8.7 MG/DL (8.5-10.1); CHLORIDE 105 MMOL/L (99-107); CREATININE 0.75 MG/DL (0.40-0.90); GLUCOSE 279 MG/DL (70-104); POTASSIUM 3.9 MMOL/L (3.5-5.1); SODIUM 137 MMOL/L (135-145); TOTAL CARBON DIOXIDE 21.9 MMOL/L (24-32); TOTAL PROTEIN 7.3 G/DL (6.4-8.2); eGFR 87 ML/MIN
[2021-05-23] MEDS: levoTHYROXINE 25mcg tablet PO SCH (07:34)
[2021-05-23] MEDS: duloxetine 30mg CAPSULE.DR PO SCH (07:37)
[2021-05-23] MEDS: spironolactone 25 MG tablet PO SCH ×2 (07:38→19:45)
[2021-05-23] MEDS: linezolid 600mg tablet PO SCH ×2 (07:38→19:44)
[2021-05-23] MEDS: normal saline 1000ml 1,000 ML IV SCH ×2 (07:39→10:35)
[2021-05-23] MEDS: piperacillin/tazo 3.375gm/50ml 50 ML IV SCH ×4 (07:39→23:15)
[2021-05-23] MEDS: heparin, porcine 5000 units/ml vial SQ SCH ×2 (07:40→21:22)
[2021-05-23] MEDS: K and/or MAG REPLACEMENT MC SCH ×2 (08:00→20:00)
[2021-05-23] MEDS: insulin Lispro (HumaLOG) vial - multi-dose SQ SCH ×4 (08:39→21:23)
[2021-05-23 10:00] VITALS: BP 131/65
[2021-05-23 10:51] LABS: BASOPHILS % (AUTO) 0.3 % (0-1); EOSINOPHILS % (AUTO) 0.1 % (0-6); HEMATOCRIT 34.7 % (35.0-45.0); HEMOGLOBIN 11.7 g/dl (12.0-16.0); LYMPHOCYTES # (AUTO) 1.5 X10'3 (1.1-4.8); LYMPHOCYTES % (AUTO) 11.6 % (21-51); MEAN CORPUSCULAR HEMOGLOBIN 27.3 PG (27.0-31.0); MEAN CORPUSCULAR HGB CONC 33.9 g/dL (33.0-36.5); MEAN CORPUSCULAR VOLUME 80.7 FL (78-98); MEAN PLATELET VOLUME 7.2 FL (7.4-10.4); MONOCYTES # (AUTO) 0.9 X10'3 (0-0.9); NEUTROPHILS # (AUTO) 10.6 X10'3 (1.8-7.7); PLATELET COUNT 333 X10'3 (140-440); RED CELL DISTRIBUTION WIDTH 14.7 % (11.5-14.5); WHITE BLOOD COUNT 13.1 X10'3 (4.5-11.0)
[2021-05-23 18:00] VITALS: BP 122/65
--- NOTE | 2021-05-23 18:41 | NUR ---
Report to Jessica FREEMAN
--- NOTE | 2021-05-23 18:58 | NUR ---
Patient in room [facility]TH[facility] 4008. I have received report from FELICIA FREEMAN and had the opportunity to ask questions and assume patient care.
[2021-05-23] MEDS: insulin glargine (Lantus) pen - multi-dose SQ SCH (21:25)
[2021-05-23 22:00] VITALS: BP 102/55
[2021-05-24] MEDS: HYDROmorphone inj. 0.5 MG/0.5 ML DISP.SYRIN IV PRN ×4 (00:20→19:19)
[2021-05-24 02:00] VITALS: BP 109/52
[2021-05-24 06:00] VITALS: BP 116/55
[2021-05-24] MEDS: normal saline 1000ml 1,000 ML IV SCH ×3 (06:35→16:35)
[2021-05-24 06:38] LABS: BASOPHILS % (AUTO) 0.4 % (0-1); EOSINOPHILS # (AUTO) 0.1 X10'3 (0-0.9); EOSINOPHILS % (AUTO) 1.2 % (0-6); HEMATOCRIT 35.2 % (35.0-45.0); HEMOGLOBIN 11.8 g/dl (12.0-16.0); LYMPHOCYTES # (AUTO) 2.6 X10'3 (1.1-4.8); LYMPHOCYTES % (AUTO) 28.1 % (21-51); MEAN CORPUSCULAR HEMOGLOBIN 27.2 PG (27.0-31.0); MEAN CORPUSCULAR HGB CONC 33.6 g/dL (33.0-36.5); MEAN CORPUSCULAR VOLUME 80.9 FL (78-98); MEAN PLATELET VOLUME 7.3 FL (7.4-10.4); MONOCYTES % (AUTO) 10.4 % (2-12); NEUTROPHILS # (AUTO) 5.6 X10'3 (1.8-7.7); NEUTROPHILS % (AUTO) 59.9 % (42-75); PLATELET COUNT 321 X10'3 (140-440); RED BLOOD COUNT 4.36 X10'6 (4.20-5.60); RED CELL DISTRIBUTION WIDTH 15.4 % (11.5-14.5); WHITE BLOOD COUNT 9.4 X10'3 (4.5-11.0)
--- NOTE | 2021-05-24 06:38 | NUR ---
Patient in room ORTH[facility] 4008. I have received report from Jessica FREEMAN and had the opportunity to ask questions and assume patient care.
[2021-05-24 06:47] LABS: ALANINE AMINOTRANSFERASE 48 U/L (12-78); ALBUMIN 2.9 G/DL (3.4-5.0); ALBUMIN/GLOBULIN RATIO 0.7 (1.1-1.5); ALKALINE PHOSPHATASE 71 IU/L (46-116); ANION GAP 11 (8-16); ASPARTATE AMINO TRANSFERASE 35 U/L (10-37); BILIRUBIN,TOTAL 0.5 MG/DL (0.1-1.0); BLOOD UREA NITROGEN 12 MG/DL (7-18); BUN/CREATININE RATIO 16.4 (6.6-38.0); CALCIUM 8.3 MG/DL (8.5-10.1); CHLORIDE 106 MMOL/L (99-107); CREATININE 0.73 MG/DL (0.40-0.90); GLUCOSE 225 MG/DL (70-104); POTASSIUM 3.8 MMOL/L (3.5-5.1); SODIUM 141 MMOL/L (135-145); TOTAL CARBON DIOXIDE 24.1 MMOL/L (24-32); TOTAL PROTEIN 6.9 G/DL (6.4-8.2); eGFR 90 ML/MIN
[2021-05-24] MEDS: duloxetine 30mg CAPSULE.DR PO SCH (07:41)
[2021-05-24] MEDS: levoTHYROXINE 25mcg tablet PO SCH (07:41)
[2021-05-24] MEDS: linezolid 600mg tablet PO SCH ×2 (07:42→19:13)
[2021-05-24] MEDS: spironolactone 25 MG tablet PO SCH ×2 (07:42→19:13)
[2021-05-24] MEDS: heparin, porcine 5000 units/ml vial SQ SCH ×2 (07:43→19:12)
[2021-05-24] MEDS: K and/or MAG REPLACEMENT MC SCH ×2 (07:44→19:14)
[2021-05-24] MEDS: insulin Lispro (HumaLOG) vial - multi-dose SQ SCH ×3 (08:08→19:11)
[2021-05-24] MEDS: piperacillin/tazo 3.375gm/50ml 50 ML IV SCH ×3 (08:39→23:41)
--- NOTE | 2021-05-24 09:05 | NUR ---
performed medication pass with instructor of nursing Nargis
[2021-05-24 10:01] VITALS: BP 143/81
--- NOTE | 2021-05-24 11:03 | NUR ---
PAGER ID: [phone] MESSAGE: [phone] Shakeel Kearns May I get oral pain medication for her? Jessica [phone]
--- NOTE | 2021-05-24 15:19 | NUR ---
reviewed nursing home assistant administrator Nargis physical assessment charting
--- NOTE | 2021-05-24 17:24 | NUR ---
PAGER ID: [phone] MESSAGE: [phone] LASHAWN HOLT CAN I GET ORAL PAIN MEDICATION RATHER THAN IV? THANK YOU SLALY
[2021-05-24 18:00] VITALS: BP 142/79
--- NOTE | 2021-05-24 18:32 | NUR ---
Patient in room ORTH[facility] 4008. I have received report from Jessica FREEMAN and had the opportunity to ask questions and assume patient care.
--- NOTE | 2021-05-24 18:34 | NUR ---
Problems reprioritized. Patient report given, questions answered & plan of care reviewed with JAZMIN FREEMAN.
[2021-05-24 20:00] VITALS: BP 142/79
[2021-05-24] MEDS: insulin glargine (Lantus) pen - multi-dose SQ SCH (21:25)
[2021-05-25] MEDS: HYDROmorphone inj. 0.5 MG/0.5 ML DISP.SYRIN IV PRN ×2 (00:06→07:58)
[2021-05-25] MEDS: normal saline 1000ml 1,000 ML IV SCH (02:35)
--- NOTE | 2021-05-25 06:30 | NUR ---
Problems reprioritized. Patient report given, questions answered & plan of care reviewed with Jessica FREEMAN.
[2021-05-25 06:58] VITALS: BP 121/62
[2021-05-25 07:03] LABS: BASOPHILS # (AUTO) 0.1 X10'3 (0-0.2); BASOPHILS % (AUTO) 0.8 % (0-1); EOSINOPHILS # (AUTO) 0.2 X10'3 (0-0.9); EOSINOPHILS % (AUTO) 2.2 % (0-6); HEMOGLOBIN 12.3 g/dl (12.0-16.0); LYMPHOCYTES # (AUTO) 2.9 X10'3 (1.1-4.8); LYMPHOCYTES % (AUTO) 33.8 % (21-51); MEAN CORPUSCULAR HEMOGLOBIN 26.7 PG (27.0-31.0); MEAN CORPUSCULAR HGB CONC 32.3 g/dL (33.0-36.5); MEAN CORPUSCULAR VOLUME 82.6 FL (78-98); MEAN PLATELET VOLUME 7.2 FL (7.4-10.4); MONOCYTES % (AUTO) 11.7 % (2-12); NEUTROPHILS # (AUTO) 4.4 X10'3 (1.8-7.7); NEUTROPHILS % (AUTO) 51.5 % (42-75); PLATELET COUNT 314 X10'3 (140-440); RED CELL DISTRIBUTION WIDTH 15.3 % (11.5-14.5); WHITE BLOOD COUNT 8.6 X10'3 (4.5-11.0)
[2021-05-25 07:21] LABS: ALANINE AMINOTRANSFERASE 45 U/L (12-78); ALBUMIN 2.9 G/DL (3.4-5.0); ALBUMIN/GLOBULIN RATIO 0.8 (1.1-1.5); ALKALINE PHOSPHATASE 67 IU/L (46-116); ANION GAP 12 (8-16); ASPARTATE AMINO TRANSFERASE 31 U/L (10-37); BILIRUBIN,TOTAL 0.6 MG/DL (0.1-1.0); BLOOD UREA NITROGEN 13 MG/DL (7-18); BUN/CREATININE RATIO 15.9 (6.6-38.0); CALCIUM 8.4 MG/DL (8.5-10.1); CHLORIDE 107 MMOL/L (99-107); CREATININE 0.82 MG/DL (0.40-0.90); GLUCOSE 168 MG/DL (70-104); POTASSIUM 3.8 MMOL/L (3.5-5.1); SODIUM 143 MMOL/L (135-145); TOTAL CARBON DIOXIDE 24.3 MMOL/L (24-32); TOTAL PROTEIN 6.7 G/DL (6.4-8.2); eGFR 78 ML/MIN
[2021-05-25] MEDS: levoTHYROXINE 25mcg tablet PO SCH (07:48)
[2021-05-25] MEDS: heparin, porcine 5000 units/ml vial SQ SCH (07:48)
[2021-05-25] MEDS: piperacillin/tazo 3.375gm/50ml 50 ML IV SCH (07:48)
[2021-05-25] MEDS: spironolactone 25 MG tablet PO SCH (07:52)
[2021-05-25] MEDS: linezolid 600mg tablet PO SCH (07:53)
[2021-05-25] MEDS: duloxetine 30mg CAPSULE.DR PO SCH (07:53)
[2021-05-25] MEDS: K and/or MAG REPLACEMENT MC SCH (08:49)
[2021-05-25] MEDS ORDERED: LACT1CAP55 PO (09:08)
[2021-05-25 10:00] VITALS: BP 117/65
[2021-05-25 10:39] VITALS: BP 117/65
== END 2021-05-25 10:44 | disposition home health service (06) | DRG 603 ==
LOC: ER 11:32 → SUR 3N 14:37 → ORTHO 4S 17:02
PROVIDERS: ADMIT Internal Medicine; ATTEND Internal Medicine
PROC: 0W9N3ZZ Drainage of Female Perineum, Percutaneous Approach (ICD-10-PCS; principal; 2021-05-22 14:58)
PROC: 5A09357 Assistance with Respiratory Ventilation, Less than 24 Consecutive Hours, Continuous Positive Airway Pressure (ICD-10-PCS; 2021-05-23)
PROC: 5A09357 Assistance with Respiratory Ventilation, Less than 24 Consecutive Hours, Continuous Positive Airway Pressure (ICD-10-PCS; 2021-05-25)
DX: L02.215 Cutaneous abscess of perineum (principal); K61.1 Rectal abscess; Z68.45 Body mass index [BMI] 70 or greater, adult; R78.81 Bacteremia; L03.315 Cellulitis of perineum; B37.2 Candidiasis of skin and nail; Z20.822 Contact with and (suspected) exposure to COVID-19; K57.90 Diverticulosis of intestine, part unspecified, without perforation or abscess without bleeding; I10 Essential (primary) hypertension; G47.33 Obstructive sleep apnea (adult) (pediatric); E66.01 Morbid (severe) obesity due to excess calories; E03.9 Hypothyroidism, unspecified; E11.65 Type 2 diabetes mellitus with hyperglycemia; F41.0 Panic disorder [episodic paroxysmal anxiety]; G43.909 Migraine, unspecified, not intractable, without status migrainosus; G89.29 Other chronic pain; M19.90 Unspecified osteoarthritis, unspecified site; R21 Rash and other nonspecific skin eruption; Z88.8 Allergy status to other drugs, medicaments and biological substances; Z79.899 Other long term (current) drug therapy
CPT/HCPCS: 96361; 96374; 99285; Z7506; 36415; 72193; 80053; 82948; 83605; 84145; 85025; 87040; 87070; 87075; 87077; 87186; 87635; A4618; A6407; A6449; A7000; C9803; G0378; J0131; J0330; J1100; J1170; J1644; J1815; J2250; J2270; J2405; J2543; J2704; J3010; J3490; J7030; Q9967; S0020

== ENCOUNTER 2022-04-05 19:41 | Emergency (ER) | payer BC ==
[~2022-04-05] VITALS: Ht 172.7 cm; Wt 205.0 kg
[~2022-04-05 19:41] MED LIST changes: -CIPR-259 PO; -HYDR-3965 PO; +LACT1CAP55 PO; -METR-159 PO
[2022-04-05 19:45] VITALS: BP 153/84
[2022-04-05 20:02] LABS: CLARITY,URINE CLOUDY (Clear); COLOR,URINE STRAW (Yellow); GLUCOSE, URINE >=1000 mg/dl (Neg); KETONES,URINE NEGATIVE (Neg); LEUKOCYTE ESTERASE ,URINE SMALL (Neg); OCCULT BLOOD,URINE MODERATE (Neg); PH,URINE 5.5 (4.8-8.0); PROTEIN,URINE NEGATIVE (Neg); URINE HCG NEGATIVE (NEG); UROBILINOGEN,URINE 0.2 E.U/dL (0.2-1.0)
[2022-04-05 20:21] LABS: UA COLLECTION TYPE CLN CATCH MIDSTREAM
[2022-04-05 20:23] LABS: NITRITES, URINE NEGATIVE (Neg)
[2022-04-05 20:26] LABS: BACTERIA,URINE 2+ /HPF (Neg); SQUAMOUS EPITHELIAL CELL,UR FEW /LPF (FEW); WBC CLUMPS,URINE FEW /HPF (NEGATIVE); WBC,URINE 30-50 /HPF (0-4)
[2022-04-05 20:27] LABS: YEAST FEW /HPF (NEGATIVE)
[2022-04-05] MEDS ORDERED: sulfamethoxazole/trimethoprim DS (800/160mg) tablet PO ONE (20:40)
[2022-04-05] MEDS ORDERED: SULF1TAB49 PO (21:09)
--- NOTE | 2022-04-05 21:19 | NUR ---
THIS NURSE CHAPERONED KATHY MCCOY FOR EXAM
== END 2022-04-05 21:21 | disposition home or self-care (01) ==
LOC: ER 19:42
DX: N39.0 Urinary tract infection, site not specified (principal); G43.909 Migraine, unspecified, not intractable, without status migrainosus; G47.30 Sleep apnea, unspecified; E11.9 Type 2 diabetes mellitus without complications; M19.90 Unspecified osteoarthritis, unspecified site; F41.9 Anxiety disorder, unspecified; Z98.890 Other specified postprocedural states; Z88.8 Allergy status to other drugs, medicaments and biological substances; Z91.018 Allergy to other foods; Z79.899 Other long term (current) drug therapy; Z79.84 Long term (current) use of oral hypoglycemic drugs
CPT/HCPCS: 81001; 81025; 87077; 87088; 87186; 99283; 99284

== ENCOUNTER 2022-05-16 12:29 | Emergency (ER) | payer BC ==
[~2022-05-16] VITALS: Ht 172.7 cm; Wt 197.7 kg
[2022-05-16 12:45] VITALS: BP 164/80
[2022-05-16] MEDS ORDERED: IBUP-1986 PO (17:14)
[2022-05-16] MEDS ORDERED: AZIT250T PO (17:14)
[2022-05-16] MEDS ORDERED: METR-159 PO (17:14)
== END 2022-05-16 20:24 | disposition home or self-care (01) ==
LOC: ER 12:29
DX: K11.20 Sialoadenitis, unspecified (principal); G43.909 Migraine, unspecified, not intractable, without status migrainosus; E11.9 Type 2 diabetes mellitus without complications; M19.90 Unspecified osteoarthritis, unspecified site; Z88.8 Allergy status to other drugs, medicaments and biological substances
CPT/HCPCS: 99283

== ENCOUNTER 2022-05-18 11:39 | Emergency (ER) | payer BC ==
[~2022-05-18] VITALS: Ht 172.7 cm; Wt 199.8 kg
[~2022-05-18 11:39] MED LIST changes: +AZIT250T PO; +IBUP-1986 PO; +METR-159 PO
[2022-05-18] MEDS ORDERED: HYDROcodone/acetaminophen 10/325mg tab PO ONE (14:30)
[2022-05-18] MEDS ORDERED: ondansetron 4mg rapidly disintigrating tab PO ONE (14:30)
[2022-05-18 15:13] LABS: URINE HCG NEGATIVE (NEG)
[2022-05-18 16:17] LABS: BASOPHILS # (AUTO) 0.1 X10'3 (0-0.2); BASOPHILS % (AUTO) 1.1 % (0-1); EOSINOPHILS # (AUTO) 0.3 X10'3 (0-0.9); EOSINOPHILS % (AUTO) 2.9 % (0-6); HEMATOCRIT 42.4 % (35.0-45.0); HEMOGLOBIN 14.1 g/dl (12.0-16.0); LYMPHOCYTES # (AUTO) 2.9 X10'3 (1.1-4.8); LYMPHOCYTES % (AUTO) 28.4 % (21-51); MEAN CORPUSCULAR HEMOGLOBIN 26.7 PG (27.0-31.0); MEAN CORPUSCULAR HGB CONC 33.3 g/dL (33.0-36.5); MEAN CORPUSCULAR VOLUME 80.2 FL (78-98); MEAN PLATELET VOLUME 8.4 FL (7.4-10.4); MONOCYTES # (AUTO) 0.7 X10'3 (0-0.9); NEUTROPHILS # (AUTO) 6.1 X10'3 (1.8-7.7); NEUTROPHILS % (AUTO) 60.6 % (42-75); PLATELET COUNT 320 X10'3 (140-440); RED BLOOD COUNT 5.28 X10'6 (4.20-5.60); RED CELL DISTRIBUTION WIDTH 14.5 % (11.5-14.5); WHITE BLOOD COUNT 10.1 X10'3 (4.5-11.0)
[2022-05-18 16:37] LABS: ALANINE AMINOTRANSFERASE 33 U/L (12-78); ALBUMIN 3.6 G/DL (3.4-5.0); ALBUMIN/GLOBULIN RATIO 0.9 (1.1-1.5); ALKALINE PHOSPHATASE 73 IU/L (46-116); ANION GAP 12 (8-16); ASPARTATE AMINO TRANSFERASE 13 U/L (10-37); BILIRUBIN,TOTAL 0.7 MG/DL (0.1-1.0); BLOOD UREA NITROGEN 13 MG/DL (7-18); BUN/CREATININE RATIO 17.1 (10.0-20.0); CALCIUM 9.3 MG/DL (8.5-10.1); CHLORIDE 103 MMOL/L (99-107); CREATININE 0.76 MG/DL (0.40-0.90); GLUCOSE 364 MG/DL (70-104); POTASSIUM 3.9 MMOL/L (3.5-5.1); SODIUM 137 MMOL/L (135-145); TOTAL CARBON DIOXIDE 21.9 MMOL/L (24-32); TOTAL PROTEIN 7.7 G/DL (6.4-8.2); eGFR 85 ML/MIN
[2022-05-18] MEDS ORDERED: iohexol 300mg/ml 100ml inj. ONE (16:45)
[2022-05-18] MEDS ORDERED: ketorolac trometh. 30mg/ml inj. IV ONE (18:05)
[2022-05-18] MEDS ORDERED: AMOX-117 PO (19:47)
[2022-05-18] MEDS ORDERED: HYDR-3965 PO (19:47)
[2022-05-18 19:52] VITALS: BP 144/88
== END 2022-05-18 20:05 | disposition home or self-care (01) ==
LOC: ER 11:39
DX: K11.20 Sialoadenitis, unspecified (principal); G43.909 Migraine, unspecified, not intractable, without status migrainosus; E11.9 Type 2 diabetes mellitus without complications; F41.9 Anxiety disorder, unspecified; M19.90 Unspecified osteoarthritis, unspecified site; G47.30 Sleep apnea, unspecified; Z98.890 Other specified postprocedural states; Z88.8 Allergy status to other drugs, medicaments and biological substances; Z91.018 Allergy to other foods; Z79.899 Other long term (current) drug therapy
CPT/HCPCS: 36415; 70491; 80053; 81025; 82948; 85025; 96374; 99285; J1885; J3490; Q9967

== ENCOUNTER 2023-11-05 12:37 | Emergency (ER) | payer BC ==
[~2023-11-05] VITALS: Ht 172.7 cm; Wt 186.4 kg
[~2023-11-05 12:37] MED LIST changes: -AZIT250T PO; -METR-159 PO
[2023-11-05 13:44] LABS: HEMOGLOBIN 14.7 g/dl (12.0-16.0)
[2023-11-05 13:45] LABS: HEMATOCRIT 44.1 % (35.0-45.0); MEAN CORPUSCULAR HEMOGLOBIN 26.9 PG (27.0-31.0); MEAN CORPUSCULAR HGB CONC 33.3 g/dL (33.0-36.5); MEAN CORPUSCULAR VOLUME 80.8 FL (78-98); MEAN PLATELET VOLUME 8.5 FL (7.4-10.4); PLATELET COUNT 377 X10'3 (140-440); RED BLOOD COUNT 5.45 X10'6 (4.20-5.60); RED CELL DISTRIBUTION WIDTH 15.3 % (11.5-14.5); WHITE BLOOD COUNT 19.2 X10'3 (4.5-11.0)
[2023-11-05 14:01] LABS: ALANINE AMINOTRANSFERASE 22 U/L (12-78); ALBUMIN 3.6 G/DL (3.4-5.0); ALBUMIN/GLOBULIN RATIO 0.7 (1.1-1.5); ALKALINE PHOSPHATASE 90 IU/L (46-116); ANION GAP 8 (8-16); ASPARTATE AMINO TRANSFERASE 20 U/L (10-37); BILIRUBIN,TOTAL 1.4 MG/DL (0.1-1.0); BLOOD UREA NITROGEN 14 MG/DL (7-18); BUN/CREATININE RATIO 15.1 (10.0-20.0); CHLORIDE 101 MMOL/L (99-107); CREATININE 0.93 MG/DL (0.40-0.90); GLUCOSE 141 MG/DL (70-104); LIPASE 36 U/L (16-77); POTASSIUM 4.3 MMOL/L (3.5-5.1); SODIUM 136 MMOL/L (135-145); TOTAL CARBON DIOXIDE 26.9 MMOL/L (24-32); TOTAL PROTEIN 8.5 G/DL (6.4-8.2); eCRCL 82 ML/MIN; eGFR 67 ML/MIN
[2023-11-05 14:06] LABS: PLATELET ESTIMATE NORMAL; TOTAL CELLS COUNTED 100
[2023-11-05] MEDS: normal saline 1000ML IV soln IVB ONE (14:31)
[2023-11-05 16:06] LABS: HCG SERUM QL NEGATIVE
[2023-11-05] MEDS: CefTRIAXone/D5W-Rocephin 1gm 50 ML IV ONE (17:33)
[2023-11-05] MEDS: ondansetron/PF 4mg/2ml inj IV ONE (17:52)
[2023-11-05] MEDS ORDERED: CHOL4POW4 PO (18:08)
[2023-11-05] MEDS ORDERED: ONDA-243 PO (18:10)
[2023-11-05 18:24] LABS: BILIRUBIN,URINE NEGATIVE (Neg); CLARITY,URINE SLIGHTLY CLOUDY (Clear); COLOR,URINE YELLOW (Yellow); GLUCOSE, URINE NEGATIVE (Neg); KETONES,URINE NEGATIVE (Neg); LEUKOCYTE ESTERASE ,URINE SMALL (Neg); NITRITES, URINE POSITIVE (Neg); OCCULT BLOOD,URINE SMALL (Neg); PROTEIN,URINE NEGATIVE (Neg); UROBILINOGEN,URINE 0.2 E.U/dL (0.2-1.0)
[2023-11-05 18:37] LABS: UA COLLECTION TYPE STRAIGHT CATH
[2023-11-05 18:40] LABS: BACTERIA,URINE 2+ /HPF (Neg); RBC,URINE 0-2 /HPF (0-2); SQUAMOUS EPITHELIAL CELL,UR MODERATE /LPF (FEW)
[2023-11-05 18:41] LABS: MUCUS STRANDS FEW /LPF (Neg)
[2023-11-05] MEDS ORDERED: AMOX-580 PO (19:07)
[2023-11-05] MEDS ORDERED: CEFU250T95 PO (19:59)
[2023-11-05 20:23] VITALS: BP 128/80; PULSE 92; RESP 16; TEMP 99; O2SAT 96
== END 2023-11-05 20:20 | disposition home or self-care (01) ==
LOC: ER 12:38
DX: R19.7 Diarrhea, unspecified (principal); R11.10 Vomiting, unspecified; N39.0 Urinary tract infection, site not specified; M19.90 Unspecified osteoarthritis, unspecified site; E11.9 Type 2 diabetes mellitus without complications; F41.9 Anxiety disorder, unspecified; G47.30 Sleep apnea, unspecified; F41.0 Panic disorder [episodic paroxysmal anxiety]; G43.909 Migraine, unspecified, not intractable, without status migrainosus; Z88.8 Allergy status to other drugs, medicaments and biological substances; Z79.899 Other long term (current) drug therapy; Z79.1 Long term (current) use of non-steroidal anti-inflammatories (NSAID); Z79.84 Long term (current) use of oral hypoglycemic drugs
CPT/HCPCS: 36415; 74176; 80053; 81001; 82948; 83690; 84703; 85007; 85025; 87088; 96361; 96365; 96375; 99285; J0696; J2405; J7030